=== PATIENT | male | born 1930 | race Caucasian/White ===

== ENCOUNTER 2017-06-30 17:22 | Inpatient (IN) | payer OTHER ==
[~2017-06-30] VITALS: Ht 175.3 cm; Wt 76.5 kg
--- NOTE | ~2017-06-30 | D ---
[facility] [place] [address] DISCHARGE SUMMARY Name: JOSE GUADALUPE VELAZQUEZ Room #: 446-P [facility] IN .R.#: [id number] Admission: 06/30/17 Attend Phys: Sage Maya MD Discharge: Date of : 30 Report #: [id number] THIS REPORT FOR: //name// CC: Antonio Maya FINAL DIAGNOSES: 1. Community-acquired pneumonia. 2. Atrial fibrillation. 3. Hypertension. 4. Chronic kidney disease, stage 3. HOSPITAL COURSE: The patient was admitted with shortness of breath, weakness and cough with fever. Chest x-ray revealed a left lower lobe infiltrate. He was treated for community-acquired pneumonia. Other home medications were continued. He had no medical complications during his stay. With conservative treatment, his cough and symptoms improved. His strength improved and he was walking over 150 feet, independent. A followup chest x-ray was showing improvement in the left basilar infiltrate. PHYSICAL EXAMINATION: GENERAL: On the day of discharge, he was awake and alert with stable vital signs reviewed electronically. LUNGS: Had just scant inspiratory crackles in the left base, but clear anteriorly. He was not requiring oxygen. HEART: Irregular. ABDOMEN: Soft and normoactive bowel sounds. EXTREMITIES: No edema. DISPOSITION: He will be discharged to home with diet and activity as tolerated. He will be on medications of Mucinex, Levaquin for 7 days, Altace, Levoxyl, folic acid, metoprolol, Eliquis, aspirin and cholestyramine. <ELECTRONICALLY SIGNED> By: Sage Maya MD 07/04/17 0921 0833 0844 Sage Maya MD /nt
--- NOTE | ~2017-06-30 | H ---
[facility] [place] [address] HISTORY AND PHYSICAL Name: JOSE GUADALUPE VELAZQUEZ Room #: 446-P [facility] IN ..#: [id number] Admission: 06/30/17 Attend Phys: Sage Maya MD Discharge: Date of : 30 Report #: [id number] THIS REPORT FOR: //name// CC: Antonio Maya DATE OF SERVICE: 06/30/2017 CHIEF COMPLAINT: Weakness. HISTORY OF PRESENT ILLNESS: The patient is an 87-year-old gentleman, admitted to the Emergency Room from home with general weakness. He said he has been in his usual state of health until this past Friday afternoon when he developed sinus congestion and a sore throat. Overnight, he developed symptoms of chills and productive cough. He was so weak yesterday that he could not get out of his chair and was brought to the Emergency Room. Evaluation has suggested pneumonia as a source of his acute illness. He denies any significant shortness of breath or chest pain. PAST MEDICAL HISTORY: Hypertension, diabetes type 2, history of bronchitis, pneumonia, hypothyroidism, history of remote left cerebellar and basilar ganglia infarct in 2008. PAST SURGICAL HISTORY: He has had a clavicle fracture, right shoulder surgery, cataract, spine surgery, venous revascularization procedure to the legs. FAMILY HISTORY: Noncontributory. SOCIAL HISTORY: Lives at home. He has a remote [id number] history of smoking, but says he quit over 20 years ago. No chronic alcohol use. ALLERGIES: None. MEDICATIONS: Synthroid, aspirin, Altace, multivitamin, Toprol, Eliquis. REVIEW OF SYSTEMS: He denies headache, chest pain, shortness of breath, abdominal pain, nausea, vomiting, diarrhea, constipation, dysuria, syncope. OBJECTIVE: VITAL SIGNS: Temperature 36.8, pulse 59, respirations 17, blood pressure 125/71, O2 sat 97% on room air. GENERAL: He is awake and alert, in no distress. HEAD AND NECK: Unremarkable. He does sound congested sinuses. LUNGS: He has some slight inspiratory crackles in the right base, clear otherwise. HEART: Regular, no murmur. [facility] [address] [place] [address] HISTORY AND PHYSICAL Name: JOSE GUADALUPE VELAZQUEZ Room #: 446-P [facility] IN [facility]#: [id number] Admission: 06/30/17 Attend Phys: Sage Maya MD Discharge: Date of : 30 Report #: [id number] ABDOMEN: Soft, normoactive bowel sounds. EXTREMITIES: No edema. NEUROLOGIC: Motor strength 4/5 throughout. LABORATORY AND X-RAY DATA: Reviewed. Influenza is negative. Chest x-rays suggested a left lower lobe infiltrate. ASSESSMENT: 1. Community-acquired pneumonia. 2. Hypertension. PLAN: We will continue antibiotics and have some additional respiratory cultures taken. Resume his home medications that he takes Eliquis, which will cover him for DVT prophylaxis. I do not view this as severe sepsis case as he is not requiring high flow oxygen, hemodynamically stable and has been treated on the floor without the requirement of ICU monitoring, pressors or other aggressive medical treatment. <ELECTRONICALLY SIGNED> By: Sage Maya MD 07/01/17 1035 1008 1031 Sage Maya MD /nt
[~2017-06-30 17:22] MED LIST: ALTACE5 M1 PO; ARICEPT 5 MG TAB5 MG PO; ASPIRIN EC81 M1 PO; CENTRUM COMPLE1 EACH PO; CIPROFLOXACIN500 M1 PO; COUMADIN 5 MG TA5 M1 PO; DETROL LA4 MG PO; FISHOIL PO; FUROSEMIDE 40 M40 MG PO; GLUCOPHAGE500 MG PO; K-DUR 20 MEQ T20 MEQ PO; NASONEX17 GM; PREDNISONE 10 M10 M1 PO; PRESERVISION A1 EAC1 PO; SYNTHROID50 MCG PO; TOPROL XL25 MG PO
[2017-06-30 17:23] VITALS: BP 144/54
[2017-06-30 18:00] LABS: URINE BILIRUBIN NEGATIVE (Negative); URINE BLOOD TRACE (Negative); URINE CLARITY CLEAR; URINE COLOR YELLOW; URINE GLUCOSE-RANDOM* NEGATIVE (Negative); URINE KETONES TRACE (Negative); URINE LEUKOCYTES NEGATIVE (Negative); URINE NITRITE NEGATIVE (Negative); URINE PROTEIN (DIPSTICK) 1+ (Negative); URINE SPECIFIC GRAVITY 1.025 (1.005-1.035); URINE UROBILINOGEN 0.2 E.U./dl (0.2-1.0)
[2017-06-30 18:15] LABS: BACTERIA None Seen /HPF (None Seen); CRYSTALS None Seen /LPF (None Seen); FINE GRANULAR CASTS 0-3 Few /LPF (None Seen); MUCUS 0-3 Light strn/LPF (None Seen); SQUAMOUS 0-3 Few /LPF (0-3); URINE RBC 0-2 Rare /HPF (0-2); URINE WBC 0-5 Rare /HPF (0-5)
[2017-06-30 18:22] LABS: ABSOLUTE NEUTROPHILS 11.7 thou/uL (1.4-8.2); BASOPHILS 0.4 % (0.0-2.0); EOSINOPHILS 2.3 % (0.0-3.0); HEMATOCRIT 40.9 % (42.0-52.0); HEMOGLOBIN 13.4 gm/dL (14.0-18.0); LYMPHOCYTES 6.7 % (24.0-44.0); MCH 33.1 pg (26.0-34.0); MCHC 32.6 g/dL (28.0-37.0); MCV 101.4 fL (80.0-100.0); MONOCYTES 5.2 % (1.0-8.0); PLATELET COUNT 183 thou/uL (150-400); POLYS 85.4 % (36.0-66.0); RBC 4.03 mil/uL (4.50-6.00); RDW 14.8 % (10.5-14.5); WBC 13.7 thou/uL (4.0-11.0)
[2017-06-30 18:31] LABS: CALCIUM 9.4 mg/dL (8.5-10.1); CREATININE 1.6 mg/dL (0.7-1.3); POTASSIUM 5.3 mmol/L (3.5-5.1)
[2017-06-30 18:37] LABS: ALBUMIN 3.8 g/dL (3.4-5.0); DIRECT BILIRUBIN 0.2 mg/dL (<0.1-0.3); TOTAL BILIRUBIN 0.7 mg/dL (<0.1-1.0); TOTAL PROTEIN 8.3 g/dL (6.4-8.2)
[2017-06-30] MEDS ORDERED: ELIQUIS2.5 MG PO (18:42)
[2017-06-30] MEDS ORDERED: PERVISION OPHTHALMIC (18:44)
[2017-06-30 19:44] VITALS: BP 127/55
[2017-06-30 20:11] VITALS: BP 121/70
[2017-06-30] MEDS ORDERED: ASPIR 8181 MG PO (20:14)
[2017-07-01] VITALS: BP 111/62
[2017-07-01 04:00] VITALS: BP 130/68
[2017-07-01 05:24] LABS: HEMATOCRIT 36.3 % (42.0-52.0); HEMOGLOBIN 12.1 gm/dL (14.0-18.0); MCH 33.4 pg (26.0-34.0); MCHC 33.3 g/dL (28.0-37.0); MCV 100.5 fL (80.0-100.0); RBC 3.61 mil/uL (4.50-6.00); RDW 14.9 % (10.5-14.5); WBC 10.7 thou/uL (4.0-11.0)
[2017-07-01 05:25] LABS: ALBUMIN 2.9 g/dL (3.4-5.0); CALCIUM 8.5 mg/dL (8.5-10.1); CREATININE 1.5 mg/dL (0.7-1.3); POTASSIUM 4.9 mmol/L (3.5-5.1); TOTAL BILIRUBIN 0.6 mg/dL (<0.1-1.0); TOTAL PROTEIN 6.8 g/dL (6.4-8.2)
[2017-07-01 08:30] VITALS: BP 125/71
[2017-07-01] MEDS ORDERED: CHOLESTYRAMINE P4 GM PO (11:32)
[2017-07-01 16:30] VITALS: BP 122/62
[2017-07-01 19:48] VITALS: BP 136/71
[2017-07-02 03:30] VITALS: BP 120/59
[2017-07-02 05:34] LABS: HEMATOCRIT 37.1 % (42.0-52.0); HEMOGLOBIN 12.3 gm/dL (14.0-18.0); MCH 33.7 pg (26.0-34.0); MCHC 33.2 g/dL (28.0-37.0); MCV 101.3 fL (80.0-100.0); RBC 3.66 mil/uL (4.50-6.00); WBC 10.2 thou/uL (4.0-11.0)
[2017-07-02 05:53] LABS: CALCIUM 8.6 mg/dL (8.5-10.1); CREATININE 1.4 mg/dL (0.7-1.3); POTASSIUM 5.1 mmol/L (3.5-5.1)
[2017-07-02 08:00] VITALS: BP 118/65
[2017-07-02 16:00] VITALS: BP 124/61
[2017-07-02 19:50] VITALS: BP 140/58
[2017-07-03 02:50] VITALS: BP 112/60
[2017-07-03 08:59] VITALS: BP 104/58
[2017-07-03 16:23] VITALS: BP 113/52
[2017-07-03 19:50] VITALS: BP 137/75
[2017-07-04 03:30] VITALS: BP 108/59
[2017-07-04 08:00] VITALS: BP 137/72
[2017-07-04] MEDS ORDERED: MUCINEX600 MG PO (08:28)
[2017-07-04] MEDS ORDERED: LEVAQUIN 500 M500 M2 PO (08:29)
[2017-07-04] MEDS ORDERED: LEVAQUIN 250 M250 MG PO (08:34)
[2017-07-04 10:43] VITALS: BP 137/72
[2017-07-04 23:07] LABS: ADENOVIRUS Negative (Negative); INFLUENZA A Negative (Negative); INFLUENZA B Negative (Negative); METAPNEUMOVIRUS Negative (Negative); PARAINFLUENZA 1 Negative (Negative); PARAINFLUENZA 2 Negative (Negative); PARAINFLUENZA 3 Negative (Negative); RHINOVIRUS Positive (Negative); RSV A Negative (Negative); RSV B Negative (Negative)
== END 2017-07-04 13:47 | disposition home or self-care (01) | DRG 194 ==
LOC: ER 17:22 → 4S 19:28 → EROBS 19:28 → 4S 19:50 → ENTRNSPT 07-04 15:39 → EDTRNSPTSTS 07-04 15:43
PROVIDERS: Internal Medicine Geriatric Medicine; Nurse Practitioner
DX: J18.9 Pneumonia, unspecified organism (principal); E87.2 Acidosis; R65.10 Systemic inflammatory response syndrome (SIRS) of non-infectious origin without acute organ dysfunction; E05.90 Thyrotoxicosis, unspecified without thyrotoxic crisis or storm; I48.91 Unspecified atrial fibrillation; N18.3 Chronic kidney disease, stage 3 (moderate); I12.9 Hypertensive chronic kidney disease with stage 1 through stage 4 chronic kidney disease, or unspecified chronic kidney disease; E11.22 Type 2 diabetes mellitus with diabetic chronic kidney disease; E03.9 Hypothyroidism, unspecified; Z86.73 Personal history of transient ischemic attack (TIA), and cerebral infarction without residual deficits; Z98.41 Cataract extraction status, right eye; Z87.81 Personal history of (healed) traumatic fracture; Z90.49 Acquired absence of other specified parts of digestive tract; Z79.01 Long term (current) use of anticoagulants; Z79.82 Long term (current) use of aspirin; Z79.899 Other long term (current) drug therapy; Z87.891 Personal history of nicotine dependence
CPT/HCPCS: 10100

== ENCOUNTER 2018-02-07 06:39 | Inpatient (IN) | payer OTHER ==
[~2018-02-07] VITALS: Ht 172.7 cm; Wt 85.8 kg
--- NOTE | ~2018-02-07 | HC ---
[facility] [place] [address] CONSULTATION Name: JOSE GUADALUPE VELAZQUEZ Room #: 458-P ADM IN M.R.#: [id number] Admission: 02/07/18 Attend Phys: Radha Melgar Discharge: Date of : 30 Report #: [id number] THIS REPORT FOR: //name// CC: Johan Brooks DATE OF SERVICE: 02/07/2018 HISTORY OF PRESENT ILLNESS: The patient is an 87-year-old male who began having periumbilical and somewhat mid epigastric abdominal pain last night around 6 p.m. No previous recent history of abdominal pain. He also had one episode of diarrhea. I saw the patient in April of this year for chronic diarrhea. Apparently did a colonoscopy on him at that time. This was at a different facility. I do not have a copy of these results currently. The patient was started on Questran at that time and had improvement with his diarrhea and he continues to take this on a daily basis. He does take aspirin and Eliquis for history of either CVA or TIAs in the past. On admission, the patient underwent a CT scan of the abdomen and pelvis and this showed a distended gallbladder with some inflammatory changes as well as near the proximal duodenum. The gallbladder is prominent with gallstones, common bile duct 7 mm in diameter. Ultrasound of the abdomen was also performed today showing distended gallbladder, appearance with multiple gallstones, normal gallbladder wall thickness, no surrounding fluid, positive Clarke sign was noted. The patient was evaluated in the Emergency Room. Dr. Kain Brooks was also present this morning in discussing his history. He denies any nausea or vomiting. His last dose of Eliquis and aspirin was yesterday. Denies any chest pain or shortness of breath. No fevers or chills. PAST MEDICAL HISTORY: History of colonic polyps, chronic diarrhea. Previous appendectomy, hypertension and history of CVA or TIA in the past per his . He has had venous revascularization surgery bilaterally, lower extremities; history of pneumonia and hypothyroidism. CURRENT MEDICATIONS: Synthroid, aspirin 81 mg, cholestyramine on a daily basis, Altace, Centrum, Toprol and Eliquis. ALLERGIES: To NAPROXEN. REVIEW OF SYSTEMS: As per HPI. SOCIAL HISTORY: Denies any tobacco use. He reports occasional alcohol use. FAMILY HISTORY: Negative for colon cancer. PHYSICAL EXAMINATION: [facility] [address] [place] [address] CONSULTATION Name: JOSE GUADALUPE VELAZQUEZ Room #: 458-P [facility] IN [facility]#: [id number] Admission: 02/07/18 Attend Phys: Radha Melgar Discharge: Date of : 30 Report #: [id number] VITAL SIGNS: Temperature is 97.6, pulse 64, blood pressure is 155/57 and respiratory rate is 27. GENERAL: He is alert and oriented x 3, in no acute distress. HEENT: Sclerae nonicteric. Oropharynx clear. NECK: Supple, without lymphadenopathy. CARDIOVASCULAR: Regular rate and rhythm. CHEST: Clear to auscultation anteriorly bilaterally. ABDOMEN: Soft. He is tender to palpation in the right upper quadrant and nondistended. Positive bowel sounds. EXTREMITIES: No cyanosis, clubbing or edema. LABORATORY DATA: Sodium 144, potassium 3.9, chloride 113, bicarbonate 21, BUN 22, creatinine 1.2 and glucose 108. AST 23, lipase 136, total bilirubin 0.7, alkaline phosphatase 93, ALT is 28, total protein 6.0 and albumin 2.7. Lactic acid level 1.5. Troponin less than 0.06. WBC is 11.6, hemoglobin 13.1 and platelet count is 171. ASSESSMENT AND PLAN: Abdominal pain. The patient with distended gallbladder, right upper quadrant abdominal tenderness on physical exam. Suspect cholecystitis. Dr. Kain Brooks was present as well. Plan is for laparoscopic cholecystectomy tomorrow. We also discussed having been performed an upper endoscopy prior to the laparoscopic cholecystectomy to rule out the possibility of a duodenal ulcer or other abnormalities as well due to the CT findings. We will start the patient on a proton pump inhibitor at this time. We will make further recommendations after endoscopy. Plan is for clear liquids today, n.p.o. after midnight. Thank you for allowing me to participate in his care. <ELECTRONICALLY SIGNED> By: Krunal Abraham MD 02/08/18 0933 1154 0113 Krunal Abraham MD /nt
--- NOTE | ~2018-02-07 | EKG ---
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 : 1930 Requested By: Kayleen Fiore Order Number: [id number] MD: Evans Martinez Measurements Intervals [place] Rate: 70 P: [place]: QRS: -34 QRSD: 73 T: 27 QT: 400 QTc: 432 Interpretive Statements Atrial fibrillation Inferior infarct, old Poor R wave progression Compared to ECG 03/27/2011 18:47:04 Premature ventricular complexes are no longer present Electronically Signed On 02-09-2018 8:53:22 CDT by Evans Martinez [email or web address] <ELECTRONICALLY SIGNED> By: Evans Martinez MD, [facility] 02/09/18 0853 0653 0653 Evans Martinez MD, [facility] /EPI
--- NOTE | ~2018-02-07 | O ---
[facility] [place] [address] OPERATIVE REPORT Name: JOSE GUADALUPE VELAZQUEZ Room #: 222-P [facility] IN M.R.#: [id number] Admission: 02/07/18 Attend Phys: Radha Melgar Discharge: 02/11/18 Date of : 30 Report #: [id number] THIS REPORT FOR: //name// CC: Johan Flores PREOPERATIVE DIAGNOSES: Acute cholecystitis with cholelithiasis. POSTOPERATIVE DIAGNOSES: Acute cholecystitis with cholelithiasis and acquired coagulopathy. PROCEDURES PERFORMED: Attempted laparoscopic cholecystectomy converted to laparoscopic cholecystostomy tube placement. SURGEON: Kain Brooks M.D. ANESTHESIA: General anesthesia. COMPLICATIONS: None. ESTIMATED BLOOD LOSS: 500 mL. DESCRIPTION OF PROCEDURE: With the patient under general anesthesia after the EGD, abdomen was prepped and draped in sterile fashion. Timeout was performed. The patient did receive preoperative IV antibiotics. A 0.25% Marcaine was used to anesthetize the skin infraumbilically. Fascia identified, grasped with hemostat. Fascia was then opened under visualization, 0 Vicryl suture placed on the fascia edges. Veress needle was then placed through the peritoneum, abdominal cavity was insufflated with CO2. A #11 mm trocar placed into the pneumoperitoneum. Immediately it was noticed that the small bowel is moderately distended with air diffusely, likely from the EGD. There was good active peristalsis identified. The gallbladder was covered by omentum adhesion. The omentum was actually flipped up over the liver. The omentum was flipped down, then the gallbladder was adhesed. The adhesions were freed. When the adhesions were freed off the fundus of the gallbladder, the patient was noted to have significant amount of oozing from it. Points along the omentum that was bleeding was cauterized. The Surgicel was placed around the liver. Hemostasis was largely obtained this way. The patient did have significant blood coming through. Did have significant blood loss from this, but was not hypotensive. Suction hat body sorter was performed to get rid of the blood. The gallbladder was noted to be markedly inflamed. At this point, with the patient having this much oozing from just this first part, I decided not to perform a cholecystectomy. A cholecystostomy tube was then placed. Pigtail catheter was obtained from IR. The skin was anesthetized with 0.25% Marcaine. A small 2 mm incision was made, the pigtail catheter was placed through the small incision and then guided into the gallbladder. When I first advanced the pigtail down, I could see the [address] [address] OPERATIVE REPORT Name: JOSE GUADALUPE VELAZQUEZ Room #: 222-P [facility] IN M.R.#: [id number] Admission: 02/07/18 Attend Phys: Radha Melgar Discharge: 02/11/18 Date of : 30 Report #: [id number] pigtail coming out laterally. The pigtail was then pulled back. The suture on the pigtail was then pulled and the locking device was locked down on the pigtail. The pigtail was maneuvered and I was able to draw dark bile from the gallbladder. The gallbladder was also flushed with saline and the gallbladder did distend up well. Several irrigation and aspiration were performed. Fluoroscopy was then asked to come in the room and the pigtail was activated on the fluoroscopy and contrast that was injected through the catheter was noted to be in the gallbladder. A #19 Juan drain was then brought in through the lateral trocar site. CO2 was then evacuated. Irrigation was also aspirated out. I did not see any further oozing at this point. Naila was sprayed in the right upper quadrant also. The percutaneous drain along with the J-tube was sewn to the skin using 2-0 silk suture. A 3-way stopcock was placed around the pigtail catheter and the pigtail was then fitted to a suction bulb. The fairly good looking bile that was clear looking was then started to be seen in the cholecystostomy tube and the bulb. The infraumbilical trocar was removed. The infraumbilical fascia defect was closed with [id number] 0 Vicryl. Skin was irrigated, closed with 5-0 PDS. Steri-Strip, Band-Aids applied to the three trocar and drain dressing Op-Site was used for the dressing. A drain lock was also placed around the pigtail catheter. The patient was extubated, taken to recovery room having tolerated the procedure well. Operative finding and the change in the procedure was discussed with the family. Tried to request either ICU or CCU bed, but none were available. Since he is pretty stable in the recovery, the patient will be taken back to his room and will be on telemetry. <ELECTRONICALLY SIGNED> By: Kain Brooks MD 02/21/18 1154 1700 1741 Kain Brooks MD /nt
--- NOTE | ~2018-02-07 | EKG ---
[address] [address] ELECTROCARDIOGRAM REPORT Name: JOSE GUADALUPE VELAZQUEZ Room #: 458-P ADM IN M.R.#: [id number] Admission: 02/07/18 Attend Phys: Radha Melgar Discharge: Date of : 30 Report #: [id number] THIS REPORT FOR: //name// [facility] Test Date: 2018-02-08 Test Time: 13:48:09 Pat Name: JOSE GUADALUPE VELAZQUEZ Department: Room: 458 P Gender: M Vp Information Technology: : 1930 Requested By: Kameron Rivera Order Number: [id number] MD: Evans Martinez Measurements Intervals [place] Rate: 69 P: [place]: QRS: -31 QRSD: 78 T: 2 QT: 428 QTc: 459 Interpretive Statements Atrial fibrillation Inferior infarct, old Poor R wave progression Compared to ECG 03/27/2011 18:47:04 No significant changes Electronically Signed On 02-09-2018 9:20:23 CDT by Evans Martinez [email or web address] <ELECTRONICALLY SIGNED> By: Evans Martinez MD, [facility] 02/09/18 0920 1348 47 Evans Martinez MD, [facility] /EPI
--- NOTE | ~2018-02-07 | D ---
[facility] [place] [address] DISCHARGE SUMMARY Name: JOSE GUADALUPE VELAZQUEZ Room #: 222-P [facility] IN M.R.#: [id number] Admission: 02/07/18 Attend Phys: Radha Melgar Discharge: 02/11/18 Date of : 30 Report #: [id number] THIS REPORT FOR: //name// CC: Antonio Flores FINAL DIAGNOSES: 1. Acute cholecystitis. 2. Atrial fibrillation. HOSPITAL COURSE: The patient was admitted with abdominal pain. He was diagnosed with acute cholecystitis, suspected gallstone. He was taken to the operating room, but due to his anticoagulation the only procedure that could be performed was placement of a cholecystostomy tube to drainage. Please see Dr. Brooks's operative report. He was followed by the GI and Cardiology Service during his stay as well. PHYSICAL EXAMINATION: GENERAL: On the day of discharge, he was awake and alert. VITAL SIGNS: Stable. LUNGS: Clear. HEART: Regular. ABDOMEN: Soft. Normoactive bowel sounds. EXTREMITIES: No edema. Postoperatively, his anticoagulation was continued. Speech Therapy saw him and cleared his swallow with a regular thin liquid recommendation. DISPOSITION: He will be transferred to [facility] facility for continued postoperative care including IV antibiotics and management of his biliary drain. He will be under the care of Dr. Flores and continue his current medications including antibiotics. <ELECTRONICALLY SIGNED> By: Sage Maya MD 02/12/18 1012 1315 1424 Sage Maya MD /maria [place] carmen
--- NOTE | ~2018-02-07 | HC ---
[facility] [place] [address] CONSULTATION Name: JOSE GUADALUPE VELAZQUEZ Room #: 222-P [facility] IN M.R.#: [id number] Admission: 02/07/18 Attend Phys: Radha Melgar Discharge: 02/11/18 Date of : 30 Report #: [id number] THIS REPORT FOR: //name// CC: Antonio Flores REASON FOR CONSULTATION: Abdominal pain, acute cholecystitis with cholelithiasis. HISTORY OF PRESENT ILLNESS: The patient is an 87-year-old who I treated in the past for venous insufficiency. The patient complained of mid abdominal pain last night. This was pretty significant intensity. He denies nausea or vomiting. He was not able to sleep very well. He denied it going to his back. The patient came to Emergency Room because of this. I reviewed the CT scan and ultrasound. His gallbladder appears distended. There is fat stranding around the proximal part of the gallbladder. I think the finding is consistent with acute cholecystitis. Liver function test is normal. The patient has history of spicy food intolerance. No history of abdominal pain. No prior pain like this. The patient does complain of some dysphagia. PAST MEDICAL HISTORY: The patient has history of TIA, high blood pressure. MEDICATIONS: He is on Eliquis. He likely took it yesterday morning, not sure if he took it last night. He has not taken anything this morning. PHYSICAL EXAMINATION: GENERAL: The patient is an elderly male, in no acute distress. He is alert and coherent. ABDOMEN: Soft with tenderness in right upper quadrant. Some tenderness over the epigastric and left upper quadrant. No mass, guarding, rigidity or rebound. LUNGS: Clear. IMPRESSION: The patient is an 87-year-old who has been a past patient of mine. He developed pain in the abdomen last night. Pretty severe intensity. I reviewed his x-rays and his gallbladder appears to be inflamed. The patient's white count is 11,000, slightly elevated. Liver function tests are normal. RECOMMENDATION: Dr. Abraham was present during my evaluation. I think he does have some history of dysphagia. I think it would be fine to have an EGD performed, but I think the current issue is his gallbladder inflammation. He is not sure if he took his Eliquis last night. He has not taken any today. I would think the patient should be ready tomorrow. He will be about 36 hours out from his last dose. The patient understands the laparoscopic cholecystectomy, the risk of bleeding, infection, common bile duct injury. The gallbladder inflammation if not treated early will make the gallbladder surgery more difficult. This was discussed with the patient. The patient will be admitted [address] [place] [address] CONSULTATION Name: DAVIDLINDSEYTANJOSE GUADALUPE Room #: 222-P [facility] IN M.R.#: [id number] Admission: 02/07/18 Attend Phys: aRdha Melgar Discharge: 02/11/18 Date of : 30 Report #: [id number] on IV fluids, IV antibiotics, pain medication. I think he can have a clear liquid and n.p.o. after midnight. <ELECTRONICALLY SIGNED> By: Kain Brooks MD 02/21/18 1154 17 1242 Kain Brooks MD /nt
--- NOTE | ~2018-02-07 | HC ---
[facility] [place] [address] CONSULTATION Name: MARCSUJOSE GUADALUPE Paulie Room #: 222-P [facility] IN M.R.#: [id number] Admission: 02/07/18 Attend Phys: Radha Melgar Discharge: 02/11/18 Date of : 30 Report #: [id number] THIS REPORT FOR: //name// CC: Antonio Flores REASON FOR CONSULTATION: Acute kidney injury. REASON FOR PRESENTATION: Abdominal pain. HISTORY OF PRESENT ILLNESS: An 87-year-old who presented with abdominal pain in the epigastric area on 02/07. He described the abdominal pain has been persistent, associated with some nausea. No fever or chills. The patient had a CT scan with contrast on presentation that showed a distended gallbladder with some inflammatory changes. He had a gallbladder stone on his CT. Ultrasound revealed multiple gallstones. He had normal kidney function when he presented to the emergency room. He was admitted and had a cholecystostomy tube. Postoperatively, his creatinine had risen up from 1.2-1.9. He did have a fluctuating creatinine in the last year or so with a baseline creatinine of around 1.5. No reported nonsteroidal anti-inflammatory medications usage. He only had relative hypotension with a blood pressure on presentation of 166 and the lowest reading of over 48. I am being consulted to manage his acute kidney injury. PAST MEDICAL HISTORY: 1. Hypertension. 2. A-fib. 3. Hypothyroidism. 4. CVA. 5. Post-cholecystostomy tube. 6. Chronic diarrhea. ALLERGIES: NAPROXEN. SOCIAL HISTORY: No drug or alcohol abuse. FAMILY HISTORY: No known chronic kidney disease. MEDICATIONS: On presentation, the patient was on the followin. Eliquis. 2. Metoprolol. 3. Aspirin. 4. Levothyroxine. 5. Ramipril. REVIEW OF SYSTEMS: GENERAL: No fever or chills. CARDIOVASCULAR: No chest pain or palpitation. [facility] [address] [place] [address] CONSULTATION Name: JOSE GUADALUPE VELAZQUEZ Paulie Room #: 222-[facility].#: [id number] Admission: 02/07/18 Attend Phys: Radha Melgar Discharge: 02/11/18 Date of : 30 Report #: [id number] PULMONARY: No cough or hemoptysis. GASTROINTESTINAL: As per the history of present illness. GENITOURINARY: No frequency, no urgency. PHYSICAL EXAMINATION: GENERAL: Alert, oriented, in no apparent distress. VITAL SIGNS: Blood pressure is 134/52. HEAD AND NECK: No jugular venous distention, no bruit, no thyromegaly. CHEST: Clear to auscultation bilaterally. CARDIOVASCULAR: Regular with no rub detected. ABDOMEN: Soft, nontender with cholecystostomy tube. LOWER EXTREMITIES: No edema. LABORATORY VALUES: Reviewed. White blood cell count 12.1, BUN 22, creatinine is up to 1.9. ASSESSMENT, IMPRESSION, PLAN: 1. Acute kidney injury post-contrast exposure. 2. Post-cholecystostomy tube. 3. Atrial fibrillation. 4. Hypertension. His acute kidney injury seems to be related to contrast exposure, relative hypotension. At this point, I will send appropriate acute kidney injury workup. We will continue with gentle hydration. Routine care of an acute kidney injury with strict input and output, watching electrolytes, avoiding nephrotoxins. <ELECTRONICALLY SIGNED> By: Maria Dolores Saeed MD 02/19/18 0831 0623 0703 Maria Dolores Saeed MD /nt
--- NOTE | ~2018-02-07 | H ---
[facility] [place] [address] HISTORY AND PHYSICAL Name: JOSE GUADALUPE VELAZQUEZ Room #: 458-P [facility] IN ..#: [id number] Admission: 02/07/18 Attend Phys: Radha Melgar Discharge: Date of : 30 Report #: [id number] THIS REPORT FOR: //name// CC: Antonio Flores DATE OF SERVICE: 02/07/2018 CHIEF COMPLAINT: An 87-year-old male with abdominal pain. HISTORY OF PRESENT ILLNESS: This is a patient who I have known well for many years, who last evening, prior to his Emergency Room visit, began to have basically right upper quadrant pain. He tried some home maneuvers with no help and so, he presented to the Emergency Room the following morning where I saw him. He has had no other associated symptoms other than some mild nausea. PAST MEDICAL HISTORY: Noteworthy for chronic lower extremity venous insufficiency and previous synovial cyst removal many years ago. He has hypertension, diabetes, and hypothyroidism. He has had a previous stroke back in 2008. He has had an appendectomy. MEDICATIONS: Include levothyroxine, aspirin, cholestyramine, ramipril, folic acid, metoprolol, and apixaban. ALLERGIES: NAPROXEN. FAMILY HISTORY: Noncontributory. SOCIAL HISTORY: He has no smoking history of significance. His alcohol history is mainly at home, but social use. He is and still has good control of activities of daily living. REVIEW OF SYSTEMS: Otherwise negative. PHYSICAL EXAMINATION: GENERAL: Shows him lying in bed in the Emergency Room. He is in no distress. His and son are at the bedside. VITAL SIGNS: Stable. HEENT: Otherwise negative. NECK: Supple without thyromegaly or adenopathy. CHEST: Clear. CARDIOVASCULAR: Shows regular rate and rhythm without murmur. ABDOMEN: Shows some tenderness in the right upper quadrant. Bowel sounds are present. Abdomen was nondistended. EXTREMITIES: Showed chronic venous changes, but no specific edema. NEUROLOGIC: Nonfocal. [facility] [address] [place] [address] HISTORY AND PHYSICAL Name: MARCUSJOSE GUADALUPE Room #: 458-P [facility] IN ..#: [id number] Admission: 02/07/18 Attend Phys: Radha Melgar Discharge: Date of : 30 Report #: [id number] ASSESSMENT: This is a patient with right upper quadrant abdominal pain consistent with gallstone disease with comorbid conditions of diabetes, hypothyroidism, and chronic venous insufficiency. PLAN: He will be admitted for surgical intervention. By: 1001 1019 Antonio Flores MD /nt
--- NOTE | ~2018-02-07 | P ---
[facility] [place] [address] PROCEDURE REPORT Name: JOSE GUADALUPE VELAZQUEZ Room #: 222-P ADM IN M.R.#: [id number] Admission: 02/07/18 Attend Phys: Radha Melgar Discharge: Date of : 30 Report #: [id number] THIS REPORT FOR: //name// CC: Johan Brooks MD DATE OF SERVICE: 02/08/2018 PROCEDURE PERFORMED: Upper endoscopy with esophageal dilation. HISTORY OF PRESENT ILLNESS: The patient is an 87-year-old male with right upper quadrant abdominal pain who underwent a CT scan of the abdomen and pelvis yesterday on admission. This showed mild inflammatory changes in the region between the base of the gallbladder and the proximal duodenum. The gallbladder is prominent with gallstones and distended. No obvious acute cholecystitis noted. Common bile duct is 7 mm in diameter, fatty liver changes were noted. The patient is scheduled for a laparoscopic cholecystectomy today by Dr. Brooks to follow upper endoscopy. He has a history of intermittent type dysphagia as well as clearing his throat often, report some mild heartburn at times. He does not take any antacid. He does take aspirin. This has been held for the last several days. The patient had also been on Eliquis, also been held for the last 2 days. Plan is for EGD followed by a laparoscopic cholecystectomy by Dr. Brooks today. DESCRIPTION OF PROCEDURE: The risks and benefits of the procedure were explained to the patient, those risks including but not limited to bleeding, perforation, the risk of sedation. He understood these risks and gave informed consent. The procedure was performed in the operating room under general anesthesia. Next, using a standard Olympus upper endoscope, the scope was placed in the patient's mouth and advanced under direct vision to the esophagus, stomach and into the second portion of the duodenum. The upper and mid esophagus was normal in appearance. In the distal esophagus at the GE junction, grade B erosive esophagitis was noted. Overall, the gastric mucosa was normal in the fundus and body. There was a mild gastritis noted in the antrum. No evidence of ulcerations or erosions. The pylorus was normal and patent. The duodenal bulb, first and second portion were all normal. The scope was then brought back up into the patient's stomach and a Savary guidewire was inserted through the scope, leaving the guidewire in place as the scope was then withdrawn. Next, a 45 Savary dilation of the esophagus was performed without difficulty. The wire and dilator removed. The scope was reintroduced into the patient's stomach. There was no evidence of mucosal tear after dilation. The scope was then withdrawn and the procedure terminated. The patient tolerated the procedure well. IMPRESSION: [facility] [address] [place] [address] PROCEDURE REPORT Name: JOSE GUADALUPE VELAZQUEZ Room #: 222-P [facility] IN M.R.#: [id number] Admission: 02/07/18 Attend Phys: Radha Melgar Discharge: Date of : 30 Report #: [id number] 1. Grade B erosive esophagitis. 2. Mild antral gastritis. 3. Otherwise, normal upper endoscopy. RECOMMENDATIONS: 1. Recommend daily PPI therapy. 2. Observe the patient post-dilation. 3. We will obtain stool antigen for H. pylori. 4. Plan is for laparoscopic cholecystectomy to follow with Dr. Brooks today. Thank you for allowing me to participate in his care. <ELECTRONICALLY SIGNED> By: Krnual Abraham MD 02/11/18 0827 0933 2226 Krunal Abraham MD /nt
--- NOTE | ~2018-02-07 | 2DMMODE ---
[facility] [address] [place] [address] 2 D/M-MODE ECHOCARDIOGRAM Name: MARCUSJOSE GUADALUPE A Room #: 458-P [facility] IN ..#: [id number] Admission: 02/07/18 Attend Phys: Antonio Lovett Discharge: Date of : 30 Date of Service: 02/09/18 [facility] Report #: [id number] THIS REPORT FOR: //name// APPROVED REPORT Study performed: 02/09/2018 12:12:24 EXAM: Comprehensive 2D, Doppler, and color-flow Echocardiogram Patient Location: In-Patient Room #: 458 Status: routine BSA: 1.99 HR: 75 bpm BP: 122/47 mmHg Other Information Study Quality: Adequate Technically limited study due to inability to position patient. Indications Hypertension/HDD Hx afib 2D Dimensions RVDd: 41.82 mm IVSd: 10.80 (7-11mm) LVOT Diam: 23.50 (18-24mm) LVDd: 45.03 mm PWd: 11.03 (7-11mm) Ascending Ao: 33.42 (22-36mm) LVDs: 29.50 (25-40mm) Aortic Root: 32.42 mm Volumes Left Atrial Volume (Systole) Single Plane 4CH: 76.70 mL Single Plane 2CH: 66.67 mL LA ESV Index: 39.00 mL/m2 Aortic Valve AoV Peak Adrian.: 1.49 m/s AO Peak Gr.: 8.91 mmHg LVOT Max P.67 mmHg LVOT Max V: 0.96 m/s DIANA Vmax: 2.78 cm2 Mitral Valve E/A Ratio: 2.6 [facility] [address] [place] [address] 2 D/M-MODE ECHOCARDIOGRAM Name: ROBERT VELAZQUEZLISA Apodaca Room #: 458-P [facility] IN [facility]#: [id number] Admission: 02/07/18 Attend Phys: Antonio Lovett Discharge: Date of : 30 Date of Service: 02/09/18 1500 Report #: [id number] MV Decel. Time: 159.28 ms MV E Max Adrian.: 1.52 m/s MV A Adrian.: 0.59 m/s MV PHT: 46.19 ms IVRT: 72.66 ms Pulmonary Valve PV Peak Adrian.: 0.84 m/s PV Peak Gr.: 2.82 mmHg Tricuspid Valve TR Peak Adrian.: 3.26 m/s TR Peak Gr.: 42.46 mmHg Left Ventricle The left ventricle is normal size. Borderline concentric left ventricular hypertrophy. The left ventricular systolic function is normal. The left ventricular ejection fraction is within the normal range. LVEF is 55-60%. Right Ventricle Right ventricle is dilated. The right ventricular systolic function is normal. Atria Left atrium is dilated. Right atrium is severely dilated. Aortic Valve Aortic valve is moderately calcified. No aortic regurgitation is present. There is no aortic valvular stenosis. Mitral Valve Moderate mitral annular calcification. Mild mitral regurgitation. No evidence of mitral valve stenosis. Tricuspid Valve The tricuspid valve is normal in structure. Mild to moderate tricuspid regurgitation. Estimated PAP= 43mmHg+ est RA pressure. Pulmonic Valve The pulmonary valve is normal in structure. There is no pulmonic valvular regurgitation. Great Vessels The aortic root is normal in size. IVC is not visualized. [facility] [place] [address] 2 D/M-MODE ECHOCARDIOGRAM Name: MARCUSJOSE GUADALUPE Room #: 458-P ADM IN M.R.#: [id number] Admission: 02/07/18 Attend Phys: Antonio Lovett Discharge: Date of : 30 Date of Service: 02/09/18 1500 Report #: [id number] Pericardium There is no pericardial effusion. <Conclusion> The left ventricle is normal size. Borderline concentric left ventricular hypertrophy. LVEF is 55-60%. Right ventricle is dilated. Left atrium is dilated. Right atrium is severely dilated. Aortic valve is moderately calcified. Mild mitral regurgitation. Mild to moderate tricuspid regurgitation. Estimated PAP= 43mmHg+ est RA pressure. The aortic root is normal in size. The aortic root is normal in size. There is no pericardial effusion. <ELECTRONICALLY SIGNED> By: Kameron Rivera MD, FACC 02/09/181499 1500 99 Kameron Rivera MD, FACC /INF
[~2018-02-07 06:39] MED LIST changes: +ASPIR 8181 MG PO; +CHOLESTYRAMINE P4 GM PO; +ELIQUIS2.5 MG PO; +LEVAQUIN 250 M250 MG PO; +LEVAQUIN 500 M500 M2 PO; +MUCINEX600 MG PO; +PERVISION OPHTHALMIC
[2018-02-07 07:08] LABS: HEMATOCRIT 39.2 % (42.0-52.0); HEMOGLOBIN 13.1 gm/dL (14.0-18.0); MCH 33.4 pg (26.0-34.0); MCHC 33.4 g/dL (28.0-37.0); RBC 3.92 mil/uL (4.50-6.00); RDW 14.8 % (10.5-14.5); WBC 11.6 thou/uL (4.0-11.0)
[2018-02-07 07:28] LABS: URINE BILIRUBIN NEGATIVE (Negative); URINE BLOOD 1+ (Negative); URINE CLARITY CLEAR; URINE COLOR YELLOW; URINE GLUCOSE-RANDOM* NEGATIVE (Negative); URINE KETONES 1+ (Negative); URINE LEUKOCYTES-REFLEX NEGATIVE (Negative); URINE NITRITE-REFLEX NEGATIVE (Negative); URINE PROTEIN (DIPSTICK) TRACE (Negative); URINE SPECIFIC GRAVITY 1.025 (1.005-1.035); URINE UROBILINOGEN 0.2 E.U./dl (0.2-1.0)
[2018-02-07 07:34] LABS: ANION GAP 10 mmol/L (7-16); BUN 22 mg/dL (7-18); CALCIUM 7.1 mg/dL (8.5-10.1); CHLORIDE 113 mmol/L (98-107); CO2 21 mmol/L (21-32); CREATININE 1.2 mg/dL (0.7-1.3); GLUCOSE 108 mg/dL (74-106); POTASSIUM 3.9 mmol/L (3.5-5.1); SODIUM 144 mmol/L (136-145)
[2018-02-07 07:42] LABS: ALBUMIN 2.7 g/dL (3.4-5.0); LIPASE 136 U/L (73-393); SGOT 23 U/L (15-37); SGPT 28 U/L (30-65); TOTAL BILIRUBIN 0.7 mg/dL (<0.1-1.0); TROPONIN-I <0.06 ng/mL (<0.06)
[2018-02-07 08:02] LABS: CASTS None Seen /LPF (None Seen); SQUAMOUS 0-3 Few /LPF (0-3); URINE RBC None Seen /HPF (0-2); URINE WBC-REFLEX 0-5 Rare /HPF (0-5)
[2018-02-07 08:03] LABS: BACTERIA-REFLEX None Seen /HPF (None Seen); CRYSTALS None Seen /LPF (None Seen)
[2018-02-07 11:54] VITALS: BP 155/57
[2018-02-07 13:05] VITALS: BP 163/65
[2018-02-07 15:05] VITALS: BP 157/69
[2018-02-07 19:47] VITALS: BP 144/58
[2018-02-08] VITALS (8 sets, daily range): BP systolic 98–130; BP diastolic 48–82
[2018-02-08 06:33] LABS: CREATININE 1.6 mg/dL (0.7-1.3); POTASSIUM 4.5 mmol/L (3.5-5.1)
[2018-02-08 07:31] LABS: ABSOLUTE NEUTROPHILS 12.8 thou/uL (1.4-8.2); BASOPHILS 0.3 % (0.0-2.0); EOSINOPHILS 0.2 % (0.0-3.0); HEMATOCRIT 35.4 % (42.0-52.0); HEMOGLOBIN 11.9 gm/dL (14.0-18.0); LYMPHOCYTES 8.4 % (24.0-44.0); MCH 33.4 pg (26.0-34.0); MCHC 33.5 g/dL (28.0-37.0); MCV 99.8 fL (80.0-100.0); PLATELET COUNT 141 thou/uL (150-400); POLYS 83.1 % (36.0-66.0); RBC 3.55 mil/uL (4.50-6.00); RDW 14.4 % (10.5-14.5); WBC 15.5 thou/uL (4.0-11.0)
[2018-02-08 11:53] LABS: HEMATOCRIT 38.8 % (42.0-52.0); HEMOGLOBIN 12.7 gm/dL (14.0-18.0)
[2018-02-08 12:11] LABS: CALCIUM 8.5 mg/dL (8.5-10.1); CREATININE 1.7 mg/dL (0.7-1.3)
[2018-02-09 00:08] VITALS: BP 128/55
[2018-02-09 04:14] VITALS: BP 134/52
[2018-02-09 05:58] LABS: ABSOLUTE NEUTROPHILS 9.7 thou/uL (1.4-8.2); BASOPHILS 0.5 % (0.0-2.0); EOSINOPHILS 0.8 % (0.0-3.0); HEMATOCRIT 33.5 % (42.0-52.0); HEMOGLOBIN 10.8 gm/dL (14.0-18.0); LYMPHOCYTES 9.7 % (24.0-44.0); MCHC 32.3 g/dL (28.0-37.0); MCV 102.2 fL (80.0-100.0); MONOCYTES 9.1 % (1.0-8.0); PLATELET COUNT 125 thou/uL (150-400); POLYS 79.9 % (36.0-66.0); RBC 3.28 mil/uL (4.50-6.00); RDW 14.6 % (10.5-14.5); WBC 12.1 thou/uL (4.0-11.0)
[2018-02-09 06:09] LABS: CALCIUM 7.8 mg/dL (8.5-10.1); CREATININE 1.9 mg/dL (0.7-1.3); POTASSIUM 4.6 mmol/L (3.5-5.1)
[2018-02-09 08:26] VITALS: BP 122/47
[2018-02-09 13:38] LABS: URINE BILIRUBIN NEGATIVE (Negative); URINE BLOOD 2+ (Negative); URINE CLARITY CLEAR; URINE COLOR YELLOW; URINE GLUCOSE-RANDOM* NEGATIVE (Negative); URINE KETONES 1+ (Negative); URINE LEUKOCYTES NEGATIVE (Negative); URINE NITRITE NEGATIVE (Negative); URINE PROTEIN (DIPSTICK) 1+ (Negative); URINE SPECIFIC GRAVITY 1.025 (1.005-1.035); URINE UROBILINOGEN 0.2 E.U./dl (0.2-1.0)
[2018-02-09 13:48] LABS: BACTERIA 1-9 Few /HPF (None Seen); CASTS None Seen /LPF (None Seen); CRYSTALS None Seen /LPF (None Seen); SQUAMOUS 0-3 Few /LPF (0-3); URINE RBC None Seen /HPF (0-2); URINE WBC None Seen /HPF (0-5)
[2018-02-09 16:03] VITALS: BP 133/66
[2018-02-09 19:33] VITALS: BP 137/63
[2018-02-10 06:14] LABS: HEMATOCRIT 30.9 % (42.0-52.0); HEMOGLOBIN 10.4 gm/dL (14.0-18.0); MCH 34.2 pg (26.0-34.0); MCHC 33.6 g/dL (28.0-37.0); MCV 101.8 fL (80.0-100.0); RBC 3.03 mil/uL (4.50-6.00); WBC 10.4 thou/uL (4.0-11.0)
[2018-02-10 06:33] LABS: ALBUMIN 2.3 g/dL (3.4-5.0); CALCIUM 8.1 mg/dL (8.5-10.1); CREATININE 1.8 mg/dL (0.7-1.3); PHOSPHORUS 2.9 mg/dL (2.5-4.9); POTASSIUM 4.3 mmol/L (3.5-5.1)
[2018-02-10 07:15] VITALS: BP 127/50
[2018-02-10 17:13] VITALS: BP 182/82
[2018-02-10 21:10] VITALS: BP 150/64
[2018-02-11 07:37] LABS: HEMATOCRIT 30.6 % (42.0-52.0); HEMOGLOBIN 10.3 gm/dL (14.0-18.0); MCH 33.9 pg (26.0-34.0); MCHC 33.6 g/dL (28.0-37.0); MCV 100.7 fL (80.0-100.0); RBC 3.03 mil/uL (4.50-6.00); RDW 14.3 % (10.5-14.5); WBC 9.5 thou/uL (4.0-11.0)
[2018-02-11 07:49] LABS: ALBUMIN 2.2 g/dL (3.4-5.0); CALCIUM 8.4 mg/dL (8.5-10.1); CREATININE 1.8 mg/dL (0.7-1.3); PHOSPHORUS 2.4 mg/dL (2.5-4.9); POTASSIUM 3.9 mmol/L (3.5-5.1)
[2018-02-11 08:20] VITALS: BP 141/67
[2018-02-11] MEDS ORDERED: ZOSYN 3.3753.375 GM IV (13:07)
== END 2018-02-11 17:54 | DRG 445 ==
LOC: ER 06:39 → EROBS 11:08 → 4W 11:08 → SICU 11:08 → 4W 13:28 → ENTRNSPT 02-10 18:36 → SICU 02-10 20:02
PROVIDERS: Anesthesiology; Hospitalist; Internal Medicine Nephrology; Student in an Organized Health Care Education/Training Program; Surgery
PROC: 0D758ZZ Dilation of Esophagus, Via Natural or Artificial Opening Endoscopic (ICD-10-PCS; principal; 2018-02-08)
PROC: 0F9440Z Drainage of Gallbladder with Drainage Device, Percutaneous Endoscopic Approach (ICD-10-PCS; principal; 2018-02-08)
DX: K80.00 Calculus of gallbladder with acute cholecystitis without obstruction (principal); N17.9 Acute kidney failure, unspecified; D68.9 Coagulation defect, unspecified; K22.10 Ulcer of esophagus without bleeding; I48.91 Unspecified atrial fibrillation; I10 Essential (primary) hypertension; I95.9 Hypotension, unspecified; K29.70 Gastritis, unspecified, without bleeding; E11.9 Type 2 diabetes mellitus without complications; E03.9 Hypothyroidism, unspecified; I08.1 Rheumatic disorders of both mitral and tricuspid valves; D64.9 Anemia, unspecified; T50.8X5A Adverse effect of diagnostic agents, initial encounter; Y92.89 Other specified places as the place of occurrence of the external cause; Z87.01 Personal history of pneumonia (recurrent); Z86.010 Personal history of colon polyps; Z86.73 Personal history of transient ischemic attack (TIA), and cerebral infarction without residual deficits; Z90.49 Acquired absence of other specified parts of digestive tract; Z79.01 Long term (current) use of anticoagulants; Z79.82 Long term (current) use of aspirin; Z79.899 Other long term (current) drug therapy; Z88.8 Allergy status to other drugs, medicaments and biological substances; Z82.49 Family history of ischemic heart disease and other diseases of the circulatory system; Z28.21 Immunization not carried out because of patient refusal
CPT/HCPCS: 10040; 10045; 15002; 50101; 50411; 50555; 50558; 50900; 51489; 52287; 53307; 53310; 55245; 55317; 56462; 56525; 56526; 56638; 56639; 62110; 62900; 70005

== ENCOUNTER 2018-03-24 05:18 | Inpatient (IN) | payer OTHER ==
[~2018-03-24] VITALS: Ht 175.3 cm; Wt 77.1 kg
[~2018-03-24 05:18] MED LIST changes: +ARTIFICIAL TEA1 EACH OPHTHALMIC; +FLOMAX0.4 MG PO; +LEVOTHYROXINE100 MCG PO; +LISINOPRIL10 MG PO; +LOPRESSOR25 PO; +ZOSYN 3.3753.375 GM IV
[2018-03-24 06:55] LABS: HEMATOCRIT 39.4 % (42.0-52.0); HEMOGLOBIN 12.9 gm/dL (14.0-18.0); MCH 32.6 pg (26.0-34.0); MCHC 32.7 g/dL (28.0-37.0); MCV 99.9 fL (80.0-100.0); RBC 3.95 mil/uL (4.50-6.00); RDW 14.5 % (10.5-14.5); WBC 9.2 thou/uL (4.0-11.0)
[2018-03-24 06:59] LABS: POTASSIUM 5.4 mmol/L (3.5-5.1)
[2018-03-24 07:45] VITALS: BP 98/52
--- NOTE | 2018-03-24 08:42 | EKG ---
[address] [address] ELECTROCARDIOGRAM REPORT Name: JOSE GUADALUPE VELAZQUEZ Room #: 150-4 [facility].#: [id number] Admission: 03/24/18 Attend Phys: Kain Brooks MD Discharge: Date of : 30 Report #: [id number] THIS REPORT FOR: //name// [facility] Test Date: 2018-03-24 Test Time: 07:07:16 Pat Name: JOSE GUADALUPE VELAZQUEZ Department: Room: 150 4 Gender: M Methods Time Analyst: elma : 1930 Requested By: Kain Brooks Order Number: [id number] MD: Evans Martinez Measurements Intervals [place] Rate: 47 P: -66 TX: 162 QRS: -17 QRSD: 98 T: 2 QT: 441 QTc: 390 Interpretive Statements Atrial fibrillation with a slow ventricular response Inferior infarct, old Poor R wave progression Compared to ECG 02/08/2018 13:48:09 No significant change was found Electronically Signed On 03-24-2018 8:42:06 DIABETES PHYSICIAN by Evans Martinez [email or web address] <ELECTRONICALLY SIGNED> By: Evans Martinez MD, [facility] 03/24/18 0842 0707 Evans Martinez MD, [facility] /EPI
[2018-03-24 08:47] LABS: CALCIUM 8.9 mg/dL (8.5-10.1); CREATININE 2.1 mg/dL (0.7-1.3)
[2018-03-24 13:00] VITALS: BP 106/40
--- NOTE | 2018-03-24 13:30 | EKG ---
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 : 1930 Requested By: Crissy Guillory Order Number: [id number] MD: Vito Pedroza Measurements Intervals [place] Rate: 62 P: GA: QRS: -24 QRSD: 85 T: -5 QT: 441 QTc: 448 Interpretive Statements Atrial fibrillation Inferior infarct, old Anteroseptal infarct, old Compared to ECG 03/24/2018 07:07:16 Poor R-wave progression no longer present Myocardial infarct finding still present Electronically Signed On 03-24-2018 13:30:07 BACK PAD INSPECTOR by Vito Pedroza [email or web address] <ELECTRONICALLY SIGNED> By: Vito Pedroza MD 03/24/18 1330 1127 1127 Vito Pedroza MD /EPI
--- NOTE | 2018-03-24 14:10 | NUR ---
XFER PT CAME IN FROM SURGERY. PT ORIENTED TO ROOM. POST OP VITALS ARE STABLE. ADM ORDERS CARRIED OUT.
[2018-03-24 19:28] VITALS: BP 107/49
[2018-03-24 23:28] VITALS: BP 118/46
[2018-03-25 03:59] VITALS: BP 112/45
--- NOTE | 2018-03-25 04:26 | NUR ---
Pt. rested quietly at intervals during the night when checked on during frequent rounds. He c/o abdominal pain and was given iv pain meds (see emar) with some relief noted. Also, given med for c/o nausea (see emar) with some relief noted. Lapsites times 5 to abdomen with bandaids are intact. Voiding per urinal without difficutly. Bed alarm is on.
[2018-03-25 05:47] LABS: HEMATOCRIT 37.5 % (42.0-52.0); HEMOGLOBIN 12.3 gm/dL (14.0-18.0); MCH 32.9 pg (26.0-34.0); MCHC 32.8 g/dL (28.0-37.0); MCV 100.4 fL (80.0-100.0); RBC 3.73 mil/uL (4.50-6.00); RDW 14.6 % (10.5-14.5); WBC 10.3 thou/uL (4.0-11.0)
[2018-03-25 06:06] LABS: CALCIUM 8.2 mg/dL (8.5-10.1); POTASSIUM 5.4 mmol/L (3.5-5.1)
[2018-03-25 07:34] VITALS: BP 92/41
[2018-03-25 13:41] VITALS: BP 75/35
--- NOTE | 2018-03-25 13:54 | NUR ---
INITIAL ASSESSMENT: Pt evaluated for d/c planning needs. Reviewed chart and spoke with nurse and pt. Pt is alert and oriented. Pt was hospitalized at [facility] in January 2018 and went to [facility] on 02/11/18. Pt was d/c from [facility] and went to [facility]. Spoke with workforce management coordinator at [facility] and she said pt's had told the community she plans on pt returning home on d/c from hospital. Pt is agreeable to returning to [facility] if needed. Awaiting input from PT re: d/c needs. Pt has cane at home, and has been on service with [facility] in the past.
[2018-03-25 13:59] VITALS: BP 98/43
--- NOTE | 2018-03-25 15:28 | NUR ---
DISCHARGE PLANNING. REFERRAL FAXED TO PEPITO ALBARRAN AT [facility] FOR PATIENTS POST ACUTE DISCHARGE NEEDS. UNIT SW NOTIFIED DEION RE: REFERRAL AND PATIENTS DC NEEDS. FOLLOWING TO ASSIST.
--- NOTE | 2018-03-25 16:05 | NUR ---
ASSUMED CARE AT 0700. AXOX4. S/P LAP HELLEN WITH . ALSO SEEN BY PCP. LAP SITES INTACT. IV SWITCHED TO LFA BY IV TEAM DUE TO INFILTRATION. PAIN MANAGED WITH NORCO AND FENTANYL. PER PT PRICE, PT WILL NEED ACUTE REHAB AFTER D/C FROM HOSPITAL. AWAITING 'S EVALUATION. WILL CONT TO MONITOR FOR ANY CHANGES.
--- NOTE | 2018-03-25 19:26 | O ---
[facility] [place] [address] OPERATIVE REPORT Name: JOSE GUADALUPE VELAZQUEZ Room #: 464-P [facility]..#: [id number] Admission: 03/24/18 Attend Phys: Kain Brooks MD Discharge: Date of : 30 Report #: [id number] THIS REPORT FOR: //name// CC: Johan Brooks DATE OF SERVICE: 03/24/2018 PREOPERATIVE DIAGNOSES: Status post acute cholecystitis, treated with gallbladder drain. The patient is here for laparoscopic cholecystectomy; cholecystitis with cholelithiasis. POSTOPERATIVE DIAGNOSES: Status post acute cholecystitis, treated with gallbladder drain. The patient is here for laparoscopic cholecystectomy; cholecystitis with cholelithiasis. PROCEDURES PERFORMED: Laparoscopic cholecystectomy with cholangiogram. SURGEON: Kain Brooks M.D. ANESTHESIA: General anesthesia. COMPLICATIONS: None. ESTIMATED BLOOD LOSS: 100 mL. DESCRIPTION OF PROCEDURE: With the patient under general anesthesia, the abdomen was prepped and draped in sterile fashion. A 0.25% Marcaine was used to anesthetize the skin. A 2-cm curved incision was made infraumbilically. Fascia identified, grasped with Hemostat. Fascia was then opened under visualization. Incision was made above the umbilicus to avoid his previous laparoscopic port that was made inferior. Fascia was then opened under visualization and 0 Vicryl suture placed on the fascia edges. The abdominal cavity was insufflated with CO2. After creating pneumoperitoneum, an 11-mm trocar was placed. Two 5-mm trocars were placed in the right upper quadrant and a 5-mm trocar placed in the right epigastrium. I did have to take some adhesions down. The gallbladder drain was then cut at the skin and then removed. There was adhesion over the gallbladder. I was able to free that adhesion and then find the gallbladder. The gallbladder was then freed from the surrounding adhesions. Gallbladder was isolated down to the proximal part. The patient's cystic duct was isolated. The cystic duct was clipped to the gallbladder. Opening was made in the cystic duct. Cholangiogram catheter was placed. Fluoroscopic cholangiogram was obtained. I did not see any filling defect. I did flush some air bubble or debris; and after repeating cholangiogram, the filling defect has resolved. The [address] [address] OPERATIVE REPORT Name: JOSE GUADALUPE VELAZQUEZ Room #: 4[facility]..#: [id number] Admission: 03/24/18 Attend Phys: Kain Brooks MD Discharge: Date of : 30 Report #: [id number] patient's cholangiogram catheter was then removed. The proximal cystic duct was then clipped x 2 and then divided. Cystic artery was then isolated, clipped x 2 proximally and 1 distally and then divided. Gallbladder freed from the liver bed. The gallbladder was placed in a specimen bag. There was some bleeding from the adhesion and Surgicel was placed over this area. The gallbladder was free and then the fascia was enlarged. The gallbladder was quite thickened. The gallbladder contained dense sludgy material and some blackish stones. Liver bed was checked, hemostasis obtained. Surgicel was placed in the gallbladder bed. The trocars were then removed. CO2 was evacuated. The infraumbilical fascia defect was closed with [id number] 0 Vicryl in a single interrupted 0 Vicryl. Skin was irrigated, closed with 5-0 PDS. Steri-Strip applied. Band-Aids were used. The patient was awakened and taken to the recovery room. <ELECTRONICALLY SIGNED> By: Kain Brooks MD 03/25/18 1926 2214 Kain Brooks MD /nt
--- NOTE | 2018-03-25 19:26 | H ---
[facility] [place] [address] HISTORY AND PHYSICAL Name: JOSE GUADALUPE VELAZQUEZ Room #: 464-P [facility]..#: [id number] Admission: 03/24/18 Attend Phys: Kain Brooks MD Discharge: Date of : 30 Report #: [id number] THIS REPORT FOR: //name// CC: Johan Brooks DATE OF SERVICE: 03/24/2018 PREOPERATIVE INTERIM H AND P Recent H and P was about 5 weeks ago. The patient was here in the hospital at [place]. PREOP DIAGNOSIS: Acute cholecystitis, on Eliquis. HISTORY OF PRESENT ILLNESS: The patient is an 88-year-old who came in with acute cholecystitis. Because of the inflammation and the patient being on Eliquis and probably did not have enough time to come off of it, attempted gallbladder surgery, but was not able to be performed due to the inflammation and increased bleeding. The patient had a gallbladder drain placed. He has done well and left the hospital, went to long-term acute care. Now, he is in rehab at [facility]. His gallbladder drain has not been draining much. It has been clogging up with sediments. The patient's abdominal pain has resolved. His abdomen is fairly benign. He is recommended to have his gallbladder removed now. PAST MEDICAL HISTORY: Significant for diabetes and high blood pressure. Please see the H and P from recent hospitalization for detail. FAMILY HISTORY AND MEDICATION: The patient has ALLERGY TO NAPROXEN. PHYSICAL EXAMINATION: GENERAL: The patient is an elderly female in no acute distress. HEENT: Pupils react to light. Extraocular muscles are intact. Oropharynx is clear. NECK: Soft and supple. LUNGS: Clear. HEART: Regular rate and rhythm. No murmur or gallop. ABDOMEN: Soft, nondistended, nontender. No mass. There is a drain in the right upper quadrant. The patient is slightly tender at the drain site, but otherwise does not have any remarkable tenderness. EXTREMITIES: No cyanosis, clubbing, edema. IMPRESSION: The patient with acute cholecystitis, was not able to have the gallbladder removed due to complicated inflammation with being on blood thinner. [address] [address] HISTORY AND PHYSICAL Name: JOSE GUADALUPE VELAZQUEZ Room #: [address] [place] [address] M.R.#: [id number] Admission: 03/24/18 Attend Phys: Kain Brooks MD Discharge: Date of : 30 Report #: [id number] Gallbladder drain was placed and the patient was treated with antibiotic with resolution of the acute episode. The patient is now ready to have the gallbladder removed to prevent future attacks. Procedure was discussed. The patient understands the risk of bleeding, infection, common bile duct injury, bile leak and wished to proceed. <ELECTRONICALLY SIGNED> By: Kain Brooks MD 03/25/18 1926 2204 2246 Kain Brooks MD /[facility]ia [place] carmen
[2018-03-25 19:52] VITALS: BP 95/72
[2018-03-26 02:06] VITALS: BP 95/57
--- NOTE | 2018-03-26 03:32 | NUR ---
Pt. rested quietly at intervals during the night when checked on during frequent rounds. He does c/o abdominal pain and was given pain meds (see emar) with some relief noted. Lapsites to abdomen are dry and intact. Bed alarm is on.
[2018-03-26 05:45] LABS: CALCIUM 7.8 mg/dL (8.5-10.1); CREATININE 2.2 mg/dL (0.7-1.3); POTASSIUM 5.4 mmol/L (3.5-5.1)
[2018-03-26 08:42] VITALS: BP 101/53
[2018-03-26 14:54] VITALS: BP 90/53
--- NOTE | 2018-03-26 15:23 | NUR ---
Following for d/c planning needs. Pt is not medically ready for d/c today. Spoke with spouse, and pt and spouse are agreeable with plans to return to [facility] on d/c from hospital. [facility] is able to accept.
--- NOTE | 2018-03-26 15:59 | NUR ---
ASSUMED CARE AT 0700. AXOX4. S/P LAP HELLEN. [facility] AM, REVIEWED BY CORRINA. CORRINA TALKED TO WHITNEY THAT PT MAY NOT BE STABLE FOR D/C TODAY. WHITNEY AGREES AND TRANSFERRED PT'S ATTENDING SERVICE TO CORRINA BECAUSE LAP SITES ARE INTACT AND NO SURGERY SERVICE IS NECESSARY [place] [facility] PER MAI. TOLERATING IV ATB WELL. WILL CONT TO MONITOR
[2018-03-26 19:33] VITALS: BP 97/45
[2018-03-27 02:43] VITALS: BP 111/51
--- NOTE | 2018-03-27 04:04 | NUR ---
PATIENT ALERT AND ORIENTED X4. HAS 4 SITES ON ABD WITH BANDAIDS, UP WITH MAX ASSIST. USES URINAL. IV PATENT OF D5 1/2 AT 80. DENIES PAIN. POSS HOME TO [facility] TOMORROW.SLEPT MOST OF NIGHT.
[2018-03-27 06:23] LABS: CALCIUM 7.4 mg/dL (8.5-10.1); CREATININE 2.3 mg/dL (0.7-1.3); POTASSIUM 5.2 mmol/L (3.5-5.1)
[2018-03-27 07:35] VITALS: BP 100/48
[2018-03-27] MEDS ORDERED: HYDROCODON-ACE1 EAC7 PO (10:31)
[2018-03-27] MEDS ORDERED: SODIUM BICARBO650 M3 PO (10:31)
--- NOTE | 2018-03-27 12:06 | PATH ---
[facility] [address] [place] [address] PATHOLOGY RPT PROCEDURE Name: JOSE GUADALUPE BENAVIDES Room #: 464-P [facility] IN .R.#: [id number] Admission: 03/25/18 Date of : 30 Discharge: Report #: [id number] Path Case #: [id number] [facility] Accession Number: [id number] . 01 Material submitted: . GALLBLADDER . 01 Clinical history: . Cholecystitis . 02 Diagnosis: Gallbladder, cholecystectomy: - Acute hemorrhagic cholecystitis. - Cholelithiasis. - Focal hepatic parenchyma present at gallbladder bed showing nonspecific changes. . (IUV:mml; 03/25/18) QLM/03/25/2018 . 02 Electronically signed: . Suzan Lopez MD, Pathologist NPI- [id number] . 01 Gross description: . The specimen is received in formalin, labeled "Jose Guadalupe Benavides, gallbladder", is a previously opened gallbladder measuring 5.8 x 2.7 x 2.0 cm (upon reconstruction) with a diaz-pink serosa. The mucosa is effaced and the fibrous wall has an average 0.4 cm thickness. No discrete masses are identified. Within the container are several dark brown to yellow calculi and its fragments measuring 2.7 x 2.0 x 1.0 cm in aggregate. Rubber Flap Tuber Machine Operator tissue is submitted in A1. ([facility]; 03/24/2018) SHS/SHS . 02 Pathologist provided ICD-10: K80.00 . 02 CPT . 496084 Specimen Comment: A courtesy copy of this report has been sent to Specimen Comment: [phone], . Specimen Comment: Report sent to / DR TOTH Specimen Comment: A duplicate report has been generated due to demographic updates. Performed at: 01 [address] [place] [address] PATHOLOGY RPT PROCEDURE Name: JOSE GUADALUPE BENAVIDES Room #: 464-P [facility] IN [facility]#: [id number] Admission: 03/25/18 Date of : 30 Discharge: Report #: [id number] Path Case #: [id number] [address] [facility] [address], [place], [place] [id number] MD Lorenzo Loving MD Phone: [phone] Performed at: [address] [facility] [place] [id number] MD Suzan Lopez MD Phone: [phone]
--- NOTE | 2018-03-27 14:13 | NUR ---
Assumed pt care at 0645. pt was sleeping at this time. upon morning med pass the patient was a/0x4 with confusion. no issues or concerns. will continue to montior until 0300pm. the pt will d/c to facility with ride.
== END 2018-03-27 15:52 | DRG 418 ==
LOC: 4W 05:18 → TBA 05:18 → OR 05:18 → TBA 05:21 → OR 07:36 → 4W 13:32 → OR 03-25 13:32 → 4W 03-25 14:30
PROVIDERS: Surgery; ADMIT Internal Medicine Geriatric Medicine
PROC: 0FT44ZZ Resection of Gallbladder, Percutaneous Endoscopic Approach (ICD-10-PCS; principal; 2018-03-24)
PROC: BF121ZZ Fluoroscopy of Gallbladder using Low Osmolar Contrast (ICD-10-PCS; principal; 2018-03-24)
DX: K80.00 Calculus of gallbladder with acute cholecystitis without obstruction (principal); N17.9 Acute kidney failure, unspecified; I12.9 Hypertensive chronic kidney disease with stage 1 through stage 4 chronic kidney disease, or unspecified chronic kidney disease; N18.3 Chronic kidney disease, stage 3 (moderate); E87.5 Hyperkalemia; I48.91 Unspecified atrial fibrillation; E03.9 Hypothyroidism, unspecified; E11.22 Type 2 diabetes mellitus with diabetic chronic kidney disease; Z79.891 Long term (current) use of opiate analgesic; Z79.01 Long term (current) use of anticoagulants; Z88.8 Allergy status to other drugs, medicaments and biological substances; Z79.899 Other long term (current) drug therapy; Z86.73 Personal history of transient ischemic attack (TIA), and cerebral infarction without residual deficits; Z87.891 Personal history of nicotine dependence; Z90.49 Acquired absence of other specified parts of digestive tract; Z98.890 Other specified postprocedural states; Z86.39 Personal history of other endocrine, nutritional and metabolic disease
CPT/HCPCS: 10045; 10047; 50010; 50101; 50411; 50555; 50558; 51489; 51687; 53307; 53310; 53312; 55245; 55317; 56462; 56525; 56526; 56639; 62110; 62900; 70005

== ENCOUNTER 2018-04-06 15:22 | Inpatient (IN) | payer OTHER ==
[~2018-04-06] VITALS: Ht 170.2 cm; Wt 77.1 kg
--- NOTE | ~2018-04-06 | H ---
[facility] [place] [address] HISTORY AND PHYSICAL Name: JOSE GUADALUPE VELAZQUEZ Paulie Room #: 460-P ADM IN M.R.#: [id number] Admission: 04/06/18 Attend Phys: Radha Melgar Discharge: Date of : 30 Report #: [id number] THIS REPORT FOR: //name// CC: Antonio Flores DATE OF SERVICE: 04/06/2018 CHIEF COMPLAINT: The patient is an 88-year-old male, well known to my service, with increasing weakness. HISTORY OF PRESENT ILLNESS: This is the patient who has had a recent history of difficulty with gallbladder issues, ultimately ended up with cholecystectomy after tube drainage for a few weeks. He has been [facility] the [facility] and just has never been better and had more erythema in his lower extremities. He was then brought back to the ER where findings of infection were identified. He had been started on Augmentin over at the [facility] but this apparently has not been effective. PAST MEDICAL AND SURGICAL HISTORY: Noteworthy for recent gallbladder surgery, along with history of atrial fibrillation with anticoagulation. He has renal insufficiency of a moderate degree. He has had chronic venous insufficiency as well. His past medical history is otherwise negative. MEDICATIONS: List includes tamsulosin, apixaban, cholestyramine. He got a dose of vancomycin in the ER. He had been on Augmentin. Levothyroxine. FAMILY HISTORY: Really not obtainable at this time. SOCIAL HISTORY: Really not obtainable at this time. REVIEW OF SYSTEMS: Really not obtainable at this time. PHYSICAL EXAMINATION: GENERAL: Shows him to be septic in appearance. He is lethargic. He will open his eyes. He did recognize me. VITAL SIGNS: Blood pressure was 100 systolic. HEENT: Otherwise negative. NECK: Supple, without thyromegaly or adenopathy. CHEST: Coarse. CARDIOVASCULAR: Showed irregular rhythm. ABDOMEN: Nontender. EXTREMITIES: Showed vasculitic type pattern in the lower extremities. LABORATORY PARAMETERS: Showed a creatinine of 2.3, albumin 1.6. CRP was elevated. [facility] [address] [place] [address] HISTORY AND PHYSICAL Name: ROBERT VELAZQUEZLISA Apodaca Room #: 460-P [facility] IN ..#: [id number] Admission: 04/06/18 Attend Phys: Radha Melgar Discharge: Date of : 30 Report #: [id number] ASSESSMENT AND PLAN: This is the patient with, what appears to be a, septic picture in a very debilitated elderly male with recent gallbladder surgery, which at this point appears unrelated. He has some sort of infectious process and/or inflammatory process, but given his advanced age and generalized weakness, palliative care plan is probably best. I have talked with the who agrees; she is on her way. By: [phone] Antonio Flores MD /nt
[~2018-04-06 15:22] MED LIST changes: +HYDROCODON-ACE1 EAC7 PO; +SODIUM BICARBO650 M3 PO
[2018-04-06 15:24] VITALS: BP 118/54
[2018-04-06 15:59] LABS: BASOPHILS 0.3 % (0.0-2.0); EOSINOPHILS 2.6 % (0.0-3.0); HEMATOCRIT 30.9 % (42.0-52.0); HEMOGLOBIN 10.1 gm/dL (14.0-18.0); LYMPHOCYTES 8.9 % (24.0-44.0); MCH 31.2 pg (26.0-34.0); MCHC 32.7 g/dL (28.0-37.0); MCV 95.4 fL (80.0-100.0); MONOCYTES 5.4 % (1.0-8.0); PLATELET COUNT 342 thou/uL (150-400); POLYS 82.8 % (36.0-66.0); RBC 3.24 mil/uL (4.50-6.00); RDW 14.8 % (10.5-14.5); WBC 15.7 thou/uL (4.0-11.0)
[2018-04-06 16:05] LABS: CALCIUM 7.4 mg/dL (8.5-10.1); CREATININE 2.3 mg/dL (0.7-1.3); POTASSIUM 4.1 mmol/L (3.5-5.1)
[2018-04-06 16:10] LABS: ALBUMIN 1.6 g/dL (3.4-5.0); TOTAL BILIRUBIN 0.5 mg/dL (<0.1-1.0); TOTAL PROTEIN 6.8 g/dL (6.4-8.2)
[2018-04-06] MEDS ORDERED: AUGMENTIN 875-1 EACH PO (17:36)
[2018-04-06] MEDS ORDERED: TYLENOL325 MG PO (17:38)
[2018-04-06] MEDS ORDERED: ACIDOPHILUS1 EAC4 PO (17:38)
[2018-04-06] MEDS ORDERED: SODIUM BICARBO650 M3 PO (17:40)
[2018-04-06 20:41] VITALS: BP 104/56
--- NOTE | 2018-04-06 20:47 | NUR ---
ATTEMPTED TO CALL REPORT. NURSE UNAVAILABLE AT THIS TIME TO TAKE REPORT.
[2018-04-06 21:19] VITALS: BP 130/56
[2018-04-06 21:39] VITALS: BP 113/44
--- NOTE | 2018-04-06 23:59 | NUR ---
ADMISSION NOTE: ARRIVES ON THE UNIT WITH AT THE BEDSIDE. COMPLAINS OF SOME PAIN TO THE LOWER EXTREMITIES,ONE HYDROCODONE GIVEN FOR PAIN. HE HAS RED PATCHES OF SKIN TO BILATERAL LEGS. AND HIS RAISED RED PATCHES THAT ALSO INCLUDES HIS HIP AND BUTTOCK. ENCOURAGED HIM TO CALL FOR ASSIST WITH URINAL.
[2018-04-07 04:29] VITALS: BP 109/42
--- NOTE | 2018-04-07 06:13 | NUR ---
INCREASED OXYGEN TO 3 LITERS N/C IN HIS MOUTH TO MAINTAIN AN OXYGEN SAT OF 91%
[2018-04-07 08:00] VITALS: BP 76/39
--- NOTE | 2018-04-07 08:38 | NUR ---
PT ASSESSED AT START OF SHIFT. NOTED TO HAVE LABORED/RAPID BREATHING. SEPSIS EVAL COMPLETED AND RESULTS CALLED TO DR. TOTH. ORDERS OBTAINED.
[2018-04-07 08:42] LABS: PCO2 41.3 mmHg (35.0-45.0); PO2 77.1 mmHg (80.0-100.0); sO2 93.1 % (92.0-98.0)
[2018-04-07 08:45] LABS: pH 7.232 (7.360-7.450)
[2018-04-07 14:10] VITALS: BP 90/45
--- NOTE | 2018-04-07 18:01 | NUR ---
PT PLACED ON BIPAP FOR A WHILE BUT STOPPED PER REQUEST. URINE OUTPUT PICKED UP AFTER BOLUS AND IV ANTIBIOTICS. FEVER SOME BETTER. RESP SLOWER NOW. STILL VERY LETHARGIC AND NOT VERBALIZING. DOES RESPOND W/ NODDING YES/NO. VERY CONJESTED COUGH W/ NO PRODUTION. UNABLE TO SUCTION ANY MUCOUS. O2 SAT 94% ON 4L NC. AND FAMILY KEEPING [place] AT THE BEDSIDE. BEREAVEMENT CART IN ROOM W/ REFRESHMENTS.
[2018-04-07 19:50] VITALS: BP 86/42
--- NOTE | 2018-04-08 02:58 | NUR ---
ASSUMED CARE AT 1900, ASSESSMENT COMPLETED. FAMILY AT BEDSIDE. PT AWAKE AND RESPONDING TO HIS NAME AND YES/NO QUESTIONS BUT NOT TALKING. TACHYPNEA WITH MOUTH BREATHING, RR AROUND 20, O2 SAT 94% ON 4L NC; PT NOT PARTICULARLY STRUGGLING WITH HIS BREATHING, BUT UNCOMFORTABLE WITH TURNS. FACE SARITA AND WARM WITH TEMP 99. NOTICEABLE MOTTLING TO BOTH FEET AND ANKLES. DISCUSSED POC WITH FAMILY, THEY WANTED TO KEEP PT COMFORTABLE WHILE STAYING AT BEDSIDE. TURNED PT MULTIPLE TIMES, NO URINE OUTPUT. PT GRADUALLY LESS RESPONSIVE OVERNIGHT, AROUND MIDNIGHT PT'S TEMP BEGAN INCREASING AND BREATHING SLIGHTLY MORE LOUD/RAPID. SPOT CHECK OF TEMP WAS 102 AXILLARY, O2 SAT WAS 79-80% ON THE 4L. INCREASED OXYGEN TO 6L AND PLACED CANNULA IN THE MOUTH, BUT O2 SATS ONLY CAME UP TO 84% PLACED ICE PACKS UNDER ARMS AND IN GROIN. NOT RESPONDING TO VERBAL STIMULI ONLY WITHDRAWING FROM PAIN. FAMILY CALLED ABOUT 0145, STATING BREATHING HAD CHANGED. WENT TO ROOM AND FOUND PT WAS NOT BREATHING, FACE COMPLETELY PALE. TOGETHER THIS RN AND OTHER RN TITO CALLED TOD AT 0152. CUSTOMER CARE MANAGER AND DR. TAINA TOTH NOTIFIED, [facility] NOTIFIED, CALLED [facility]. POST MORTEM CARES COMPLETED. BODY SIGNED OVER TO TRANSPORT SERVICE AT 0330.
== END 2018-04-08 03:30 | DRG 871 ==
LOC: ER 15:22 → EROBS 17:58 → 4W 21:16
PROVIDERS: Physician Assistant; ADMIT Internal Medicine
PROC: 5A09357 Assistance with Respiratory Ventilation, Less than 24 Consecutive Hours, Continuous Positive Airway Pressure (ICD-10-PCS; principal; 2018-04-07)
DX: A41.9 Sepsis, unspecified organism (principal); E43 Unspecified severe protein-calorie malnutrition; L03.90 Cellulitis, unspecified; N18.9 Chronic kidney disease, unspecified; I48.91 Unspecified atrial fibrillation; R41.81 Age-related cognitive decline; I77.6 Arteritis, unspecified; I12.9 Hypertensive chronic kidney disease with stage 1 through stage 4 chronic kidney disease, or unspecified chronic kidney disease; E11.22 Type 2 diabetes mellitus with diabetic chronic kidney disease; E03.9 Hypothyroidism, unspecified; E11.51 Type 2 diabetes mellitus with diabetic peripheral angiopathy without gangrene; Z88.8 Allergy status to other drugs, medicaments and biological substances; Z79.01 Long term (current) use of anticoagulants; Z90.49 Acquired absence of other specified parts of digestive tract; Z79.899 Other long term (current) drug therapy; Z79.1 Long term (current) use of non-steroidal anti-inflammatories (NSAID)
CPT/HCPCS: 10040